=== PATIENT | male | born 1985 | race Caucasian/White ===

== ENCOUNTER 2018-05-14 22:31 | Emergency (ER) | payer BC ==
--- NOTE | 2018-05-14 22:45 | NUR ---
ATTEMPTED TO CALL PT BUT NO RESPONSE. WILL CALL AGAIN IN 5 MIN.
--- NOTE | 2018-05-14 22:57 | NUR ---
ATTEMPTED TO CALL PT BUT NO RESPONSE. WILL ATTEMPT AGAIN.
--- NOTE | 2018-05-14 23:08 | NUR ---
ATTEMPTED TO CALL BACK PT BUT STILL NO ANSWER. WILL REMOVE.
== END 2018-05-14 23:11 | disposition left against medical advice (07) ==
LOC: ER 22:36
DX: Z53.21 Procedure and treatment not carried out due to patient leaving prior to being seen by health care provider (principal)